=== PATIENT | male | born 1955 | race Hispanic/Latino ===

== ENCOUNTER 2023-09-30 16:40 | Emergency (ER) | payer OTHER ==
--- OUTSIDE RECORDS SUMMARY | 2023-09-30 16:43 | XMS REPORT | Continuity of Care Document ---
:1955 Author Organization [facility] t Address [address] [facility] [place] [address] Care Team Providers Name Role Phone ANNE MARIE KEARNS Primary Care Physician Unavailable DR ANNE MARIE KEARNS Attending Clinician Unavailable [phone] Attending Clinician Unavailable DR ANNE MARIE KEARNS Admitting Clinician Unavailable Payers Payer Name Policy Type Policy Number Effective Date Expiration Date S ource BLUE CROSS BLUE [id number] SHIELD - OP BLUE CROSS BLUE [id number] SHIELD - OP Problems This patient has no known problems. Allergies, Adverse Reactions, Alerts This patient has no known allergies or adverse reactions. Medications This patient has no known medications. Procedures This patient has no known procedures. Encounters Start End Encounter Admission Attending Care Care Encounter Source Date/Time Date/Time Type Type Clinicians Facility Department ID 2023-01-07 Outpatient URMILA ANNE MARIE FLORES 001 [id number] El 13:00:30 [id number] [facility] 2022-12-29 Outpatient URMILA ANNE MARIE FLORES 001 [id number] El 15:01:38 [id number] [facility] 2023-01-08 2023-01-08 Outpatient N URMILA ANNE MARIE FLORES NON [facility] [id number] [place] 13:51:00 13:52:00 [id number] [facility] 2023-01-07 2023-01-07 Outpatient N ANNE MARIE KEARNS MELYSSA [id number] [place] 13:01:00 13:01:00 [id number] [facility] 2023-01-07 2023-01-07 Outpatient Eleni KEARNS ANNE MARIE SANDRA KEARNS [id number] [place] 13:55:00 00:00:00 [id number] MELYSSA [facility] 2022-12-28 2022-12-28 Outpatient ANNE MARIE LAWLER SANDRA KEARNS [id number] [place] 15:01:00 00:00:00 [id number] MELYSSA [facility] Results This patient has no known results.
[2023-09-30] MEDS ORDERED: ACETAMINOPHEN 500 MG TAB ONE (17:08)
[2023-09-30] MEDS ORDERED: DIPHENHYDRAMINE 50 MG/ML VIAL ONE (17:08)
[2023-09-30] MEDS ORDERED: METOCLOPRAMIDE 10 MG/2mL INJ ONE (17:08)
[2023-09-30] MEDS ORDERED: Magnesium Sulfate 2gm IVPB 2 G/50 ML BAG IV ONE (17:08)
[2023-09-30] MEDS ORDERED: NA CHLORIDE 0.9% 50 ML ONE (17:09)
[2023-09-30 17:13] LABS: Absolute Lymphocytes (CBC) 2.8 K/uL (0.7-4.9); Hematocrit 40.7 % (39.6-49.0); MCV 93.2 fL (80-100); MPV 8.7 fL (7.6-11.3); Platelets 276 thou/uL (152-406); RBC Red Blood Cell Count 4.36 M/uL (4.33-5.43)
[2023-09-30 17:20] LABS: Bilirubin Total 0.3 mg/dL (0.2-1.0); Potassium 3.8 mEq/L (3.5-5.1); Protein, Total 8.2 g/dL (6.4-8.2)
[2023-09-30 17:21] LABS: Albumin 3.7 g/dL (3.4-5.0); Troponin High Sensitivity 9.5 pg/mL (<58.9)
--- NOTE | 2023-09-30 17:45 | RAD REPORT ---
EXAM DESCRIPTION: CT - Head Brain Wo Cont - 09/30/2023 5:03 pm CLINICAL HISTORY: headache, h/o aneurism COMPARISON: No comparisons TECHNIQUE: Noncontrast head CT images were obtained without IV contrast. Multiplanar reformats were generated and reviewed. All CT scans are performed using dose optimization technique as appropriate and may include automated exposure control or mA/KV adjustment according to patient size. FINDINGS: Column embolization material near the suprasellar cistern right of midline, resulting in m etallic streak artifact. No intracranial hemorrhage, mass, or edema. Midline structures are unremarkable. Normal ventricular caliber for age. Hussein-white matter differentiation is preserved, without evidence of acute infarct. No abnormal extra- axial fluid collections. Mastoid air cells and visualized portions of the paranasal sinuses are clear. No acute bony findings. IMPRESSION: No evidence of an acute intracranial process. Coronal embolization material as above.
--- NOTE | 2023-09-30 18:02 | RAD REPORT ---
EXAM DESCRIPTION: CT - Head angio - 09/30/2023 5:03 pm CLINICAL HISTORY: headache, h/o aneurism COMPARISON: Head Brain Wo Cont dated 09/30/2023 TECHNIQUE: Axial CT angiography images of the head was performed with multiplanar and maximum intens ity projection reconstructions. Images performed following intravenous administration of 100mL Isovue 370. All CT scans are performed using dose optimization technique as appropriate and may include automated exposure control or mA/KV adjustment according to patient size. FINDINGS: Coil embolization material at the level of the A-comm. No adjacent aneurysmal dilation wit hin limits of metallic streak artifact. Superiorly directed infundibulum along the left mid MCA M1 segment, see coronal image 104 and sagitta l image 161, with small branches arising from the MCA in this region. Non opacification of the intracranial right ICA. Likely retrograde opacification of the right A1 and M1 segments as well as the right MCA branches through a patent anterior communicating artery. Non opa cification of the proximal left vertebral artery. Retrograde opacification along its distal segment w ith caliber irregularity. Findings may be chronic, but ultimately of indeterminate age. No other evid ence of large vessel occlusion. No dissection flaps. No flow-limiting stenosis or vascular malformation identified. The right vertebral artery is patent. The visualized dural venous sinuses are grossly patent. 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 Both findings are of indeterminate age but may be chronic. Preserved opacification of the righ t MCA proximal branches and the basilar artery. Superiorly directed 3 millimeter infundibulum of the mid left MCA M1 segment. Coil embolization mater ial at the level of the A-comm. The findings were communicated to Goyo Moya on 09/30/2023 at 17:58 hours.
--- NOTE | 2023-09-30 19:06 | ER ---
Nurse's Notes [facility] Name: Yovanny Delgado Age: 68 yrs Sex: Male : 1955 Arrival Date: 09/30/2023 Time: 16:40 Bed 2 Private MD: Diagnosis: Headache Presentation: 09/30 16:36 Chief complaint: Patient states: He suddenly started having a headache about 1.25 hours nj1 ago, felt "hot", states headache is gone now. EMS states: From [place] office, patient complained of a headache on the left side of the head. Hx of aneurysms. Negative neuro exam. 16:36 Method Of Arrival: EMS: [facility] 16:36 Coronavirus screen: Vaccine status: Patient reports receiving the 2nd dose of the covid nj1 vaccine. Ebola Screen: Patient denies travel to an Ebola-affected area in the 21 days before illness onset. Initial Sepsis Screen: Does the patient meet any 2 criteria? HR > 90 bpm. No. Patient's initial sepsis screen is negative. Does the patient have a suspected source of infection? No. Patient's initial sepsis screen is negative. Risk Assessment: Do you want to hurt yourself or someone else? Patient reports no desire to harm self or others. Onset of symptoms was September 30, 2023 at 15:15. 16:36 Acuity: LORENZO 3 nj1 16:36 Care prior to arrival: IV initiated. 18 GA, in the right antecubital area, Glucose nj1 check: 151. Triage Assessment: 17:00 Headache History: The patient has had previous headaches. nj1 Historical: - Allergies: 16:48 No Known Allergies; nj1 - PMHx: 16:48 Hypertensive disorder; Diabetes mellitus; Myocardial infarction; Coronary nj1 atherosclerosis; - Immunization history:: Client reports receiving the 2nd dose of the Covid vaccine. - Social history:: Smoking status: Patient denies any tobacco usage or history of. - Family history:: not pertinent. Screenin:00 [facility] ED Fall Risk Assessment (Adult) Score/Fall Risk Level 0 - 2 = Low Risk [facility] Oriented to surroundings, Maintained a safe environment, Hourly rounding (assess needs \\T\\ fall precautionary measures) done. Abuse screen: Denies threats or abuse. Denies injuries from another. Nutritional screening: No deficits noted. Tuberculosis screening: No symptoms or risk factors identified. Assessment: 16:40 General: Appears in no apparent distress. comfortable, Behavior is calm, cooperative, nj1 appropriate for age. 16:40 Pain: Denies pain. Neuro: Level of Consciousness is awake, alert, obeys commands, nj1 Oriented to person, place, time, situation, Freelance Recruiter are equal bilaterally Moves all extremities. Speech is normal, Facial symmetry appears normal, Pupils are PERRLA, Intact. Cardiovascular: Patient's skin is warm and dry. Respiratory: Airway is patent Respiratory effort is even, unlabored. Derm: Skin is clammy. 17:43 Reassessment: Patient appears in no apparent distress at this time. Patient and/or nj1 family updated on plan of care and expected duration. Pain level reassessed. Patient is alert, oriented x 3, equal unlabored respirations, skin warm/dry/pink. Patient denies pain at this time. 18:15 Reassessment: Patient appears in no apparent distress at this time. Patient and/or db family updated on plan of care and expected duration. Pain level reassessed. Patient is alert, oriented x 3, equal unlabored respirations, skin warm/dry/pink. General: Appears in no apparent distress. comfortable, Behavior is calm, cooperative. 18:41 Reassessment: Patient appears in no apparent distress at this time. Patient and/or nj1 family updated on plan of care and expected duration. Pain level reassessed. Patient is alert, oriented x 3, equal unlabored respirations, skin warm/dry/pink. Patient denies pain at this time. 19:10 Reassessment: Patient appears in no apparent distress at this time. Patient and/or nj1 family updated on plan of care and expected duration. Pain level reassessed. Patient is alert, oriented x 3, equal unlabored respirations, skin warm/dry/pink. Patient denies pain at this time. Patient states feeling better. Patient states symptoms have improved. Vital Signs: 16:36 BP 173 / 90; Pulse 93; Resp 17; Temp 97.9(O); Pulse Ox 97% on R/A; Weight 97.98 kg; nj1 Height 5 ft. 9 in. ; Pain 0/10; 17:00 BP 177 / 86; Pulse 74; Resp 18; Pulse Ox 97% on R/A; db 17:41 BP 126 / 77; Pulse 82; Resp 17; Pulse Ox 95% on R/A; nj1 18:00 BP 123 / 69; Pulse 78; Resp 16; Pulse Ox 95% on R/A; db 18:40 BP 114 / 69; Pulse 77; Resp 17; Pulse Ox 93% on R/A; nj1 19:07 BP 130 / 87; Pulse 77; Resp 17; Pulse Ox 94% on R/A; nj1 16:36 Body Mass Index 31.90 (97.98 kg, 175.26 cm) nj1 16:36 Pain Scale: Adult nj1 ED Course: 16:40 Provided Education on: call light, fall precautions. nj1 16:40 Patient has correct armband on for positive identification. Bed in low position. Call nj1 light in reach. Side rails up X 1. 16:43 Patient arrived in ED. nj1 16:44 Goyo Moya MD is Attending Physician. rt 16:45 Maintain EMS IV. Dressing intact. Good blood return noted. Site clean \\T\\ dry. Gauge \\T\\ nj 1 site: 18g RAC. 16:47 Triage completed. nj1 16:49 Arm band placed on. nj1 17:05 CT Head Angio In Process Unspecified. EDMS 17:05 CT Head Brain wo Cont In Process Unspecified. EDMS 17:15 Carine Lino, RN is Primary Nurse. db 19:19 No provider procedures requiring assistance completed. IV discontinued, intact, nj1 bleeding controlled. Administered Medications: 17:09 Drug: metoCLOPramide IVP 10 mg IVP once; over 1 to 2 minutes Route: IVP; Site: right db antecubital; 18:00 Follow up: Response: No adverse reaction nj1 17:09 Drug: Acetaminophen PO 1000 mg PO once Route: PO; db 18:00 Follow up: Response: No adverse reaction nj1 17:10 Drug: diphenhydrAMINE IVP 25 mg IVP once Route: IVP; Site: right antecubital; db 18:00 Follow up: Response: No adverse reaction nj1 17:10 Drug: Magnesium Sulfate IVPB 2 grams IVPB once over 2 hrs Route: IVPB; Infused Over: 2 db hrs; Site: right antecubital; 19:00 Follow up: IV Status: Completed infusion; IV Intake: 50ml nj1 Medication: 17:00 VIS not applicable for this client. nj1 Intake: 19:00 IV: 50ml; Total: 50ml. nj1 Outcome: 19:05 Discharge ordered by . rt 19:19 Discharged to home ambulatory, with family, nj1 19:19 Condition: stable 19:19 Discharge instructions given to patient, Instructed on discharge instructions, follow up and referral plans. safety practices, Demonstrated understanding of instructions, follow-up care, medications, 19:19 Patient left the ED. nj1 Signatures: Dispatcher [employer] Carine Yang, RN RN db Goyo Moya MD MD rt Radha Keith RN RN nj1
--- NOTE | 2023-09-30 19:06 | EDPHYS ---
Physician Documentation [facility] Name: Yovanny Delgado Age: 68 yrs Sex: Male : 1955 Arrival Date: 09/30/2023 Time: 16:40 Bed 2 Private MD: ED Physician Goyo Moya HPI: 09/30 21:32 This 68 yrs old Male presents to ER via EMS with complaints of Headache. rt 21:32 Less than 90 minutes ago, patient had acute onset of a headache on the left side. Is rt not the worst headache of his life. Denies other symptoms or other aggravating elevating factors. Patient does report having "blockages in his arteries as well as having 2 aneurysms, one of them being coiled. Denies other acute complaints at this time, symptoms are moderate severity, aching nature, nonradiating, no other aggravating or alleviating factors.. Historical: - Allergies: 16:48 No Known Allergies; nj1 - PMHx: 16:48 Hypertensive disorder; Diabetes mellitus; Myocardial infarction; Coronary nj1 atherosclerosis; - Immunization history:: Client reports receiving the 2nd dose of the Covid vaccine. - Social history:: Smoking status: Patient denies any tobacco usage or history of. - Family history:: not pertinent. ROS: 21:32 Constitutional: Negative for fever, chills, and weight loss, Cardiovascular: Negative rt for chest pain, palpitations, and edema, Respiratory: Negative for shortness of breath, cough, wheezing, and pleuritic chest pain, Abdomen/GI: Negative for abdominal pain, nausea, vomiting, diarrhea, and constipation, MS/Extremity: Negative for injury and deformity, Skin: Negative for injury, rash, and discoloration, Psych: Negative for depression, anxiety, suicide ideation, homicidal ideation, and hallucinations, 21:32 Neuro: Positive for headache, Negative for altered mental status, Exam: 21:32 Constitutional: This is a well developed, well nourished patient who is awake, alert, rt and in no acute distress. Head/Face: Normocephalic, atraumatic. Chest/axilla: Normal chest wall appearance and motion. Nontender with no deformity. No lesions are appreciated. Cardiovascular: Regular rate and rhythm with a normal S1 and S2. No gallops, murmurs, or rubs. Normal PMI, no JVD. No pulse deficits. Respiratory: Lungs have equal breath sounds bilaterally, clear to auscultation and percussion. No rales, rhonchi or wheezes noted. No increased work of breathing, no retractions or nasal flaring. Abdomen/GI: Soft, non-tender, with normal bowel sounds. No distension or tympany. No guarding or rebound. No evidence of tenderness throughout. Skin: Warm, dry with normal turgor. Normal color with no rashes, no lesions, and no evidence of cellulitis. MS/ Extremity: Pulses equal, no cyanosis. Neurovascular intact. Full, normal range of motion. Neuro: Awake and alert, GCS 15, oriented to person, place, time, and situation. Cranial nerves II-XII grossly intact. Motor strength 5/5 in all extremities. Sensory grossly intact. Cerebellar exam normal. Normal gait. Psych: Awake, alert, with orientation to person, place and time. Behavior, mood, and affect are within normal limits. 21:35 ECG was reviewed by the Attending Physician. rt Vital Signs: 16:36 BP 173 / 90; Pulse 93; Resp 17; Temp 97.9(O); Pulse Ox 97% on R/A; Weight 97.98 kg; nj1 Height 5 ft. 9 in. ; Pain 0/10; 17:00 BP 177 / 86; Pulse 74; Resp 18; Pulse Ox 97% on R/A; db 17:41 BP 126 / 77; Pulse 82; Resp 17; Pulse Ox 95% on R/A; nj1 18:00 BP 123 / 69; Pulse 78; Resp 16; Pulse Ox 95% on R/A; db 18:40 BP 114 / 69; Pulse 77; Resp 17; Pulse Ox 93% on R/A; nj1 19:07 BP 130 / 87; Pulse 77; Resp 17; Pulse Ox 94% on R/A; nj1 16:36 Body Mass Index 31.90 (97.98 kg, 175.26 cm) [facility] 16:36 Pain Scale: Adult nj1 MDM: 16:44 Patient medically screened. rt 21:32 Differential diagnosis: Subarachnoid hemorrhage, intracranial hemorrhage, benign rt headache. Data reviewed: vital signs, nurses notes. Independent interpretation of the following test(s) in the Emergency Department X-Ray: My interpretation is No hemorrhage seen on interpretation of CT scan images. Discussion of test interpretation with radiology: I had a discussion with radiology regarding a test interpretation. 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 Care significantly affected by the following chronic conditions: Diabetes, Hypertension. Counseling: I had a detailed discussion with the patient and/or guardian regarding the historical points, exam findings, and any diagnostic results supporting the discharge/admit diagnosis, lab results, radiology results, the need for outpatient follow up. ED course: Patient states that the occlusions of the carotid and vertebral arteries are previously known, is currently undergoing work-up and evaluation for this at the [facility], he has no signs or symptoms that are attributable to ischemia. Do not believe that he requires admission at the hospital at this time. Has resolution of the headache with headache cocktail. Symptoms are less than 6 hours, negative CT scan is sufficient to rule out subarachnoid hemorrhage, do not believe that he requires lumbar puncture at this time.. 09/30 16:46 Order name: CBC with Diff; Complete Time: 17:24 rt 09/30 16:46 Order name: CMP; Complete Time: 17:24 rt 09/30 16:46 Order name: Troponin High Sensitivity; Complete Time: 17:24 rt 09/30 17:19 Order name: CREATININE WHOLE BLOOD; Complete Time: 17:24 EDMS 09/30 16:46 Order name: CT Head Angio; Complete Time: 18:08 rt 09/30 16:46 Order name: CT Head Brain wo Cont; Complete Time: 18:08 rt 09/30 16:46 Order name: EKG; Complete Time: 16:46 rt 09/30 16:46 Order name: EKG - Nurse/Tech; Complete Time: 16:49 rt EC:35 Rate is 86 beats/min. Rhythm is regular, Normal Sinus Rhythm with No ectopy. QRS [place] rt is Normal. IA interval is normal. QRS interval is normal. QT interval is normal. No Q waves. T waves are Normal. No ST changes noted. Administered Medications: 17:09 Drug: metoCLOPramide IVP 10 mg IVP once; over 1 to 2 minutes Route: IVP; Site: right db antecubital; 18:00 Follow up: Response: No adverse reaction nj1 17:09 Drug: Acetaminophen PO 1000 mg PO once Route: PO; db 18:00 Follow up: Response: No adverse reaction nj1 17:10 Drug: diphenhydrAMINE IVP 25 mg IVP once Route: IVP; Site: right antecubital; db 18:00 Follow up: Response: No adverse reaction nj1 17:10 Drug: Magnesium Sulfate IVPB 2 grams IVPB once over 2 hrs Route: IVPB; Infused Over: 2 db hrs; Site: right antecubital; 19:00 Follow up: IV Status: Completed infusion; IV Intake: 50ml nj1 Disposition Summary: 09/30/23 19:05 Discharge Ordered Notes: Location: Home rt Problem: new rt Symptoms: are resolved rt Condition: Stable rt Diagnosis - Headache rt Followup: rt - With: Private Physician - When: 2 - 3 days - Reason: Discharge Instructions: - Discharge Summary Sheet rt - General Headache Without Cause rt Forms: - Medication Reconciliation Form rt - Thank You Letter rt - Antibiotic Education rt - Prescription Opioid Use rt - Patient Portal Instructions rt - Leadership Thank You Letter rt - Work release form nj1 Signatures: Dispatcher [employer] Carine Yang RN RN db Goyo Moya MD MD rt Radha Keith RN RN nj1
[2023-09-30 20:11] VITALS: BP 130/87; O2SAT 94
--- NOTE | 2023-10-01 14:24 | EKG ---
Test Date: 2023-09-30 Test Time: 16:45:55 Net Mobile Developer: TERRY MEASUREMENT RESULTS: Intervals: Rate: 86 SD: 146 QRSD: 86 QT: 360 QTc: 430 [place]: P: 59 SD: 146 QRS: 31 T: 56 INTERPRETIVE STATEMENTS: Normal sinus rhythm with sinus arrhythmia Normal ECG No previous ECG available for comparison Electronically Signed On 10-01-23 14:22:14 LITIGATION MANAGER by Charles Estrada
== END 2023-09-30 19:19 | disposition home or self-care (01) ==
LOC: ER 16:40
DX: R51.9 Headache, unspecified (principal); E11.9 Type 2 diabetes mellitus without complications; I10 Essential (primary) hypertension
CPT/HCPCS: 96365; 93005; 85025; 36415; 82565; 84484; 80053; 70450; 70496; 96375; 99284; 96366; Q9967; J3475; J2765; J1200